=== PATIENT | female | born 1935 | race Two or more races ===

== ENCOUNTER 2022-08-23 21:01 | Inpatient (IN) | payer BC, OTHER ==
[~2022-08-23] VITALS: Ht 154.9 cm; Wt 68.0 kg
[2022-08-23] MEDS ORDERED: dilTIAZem 25 MG/5 ML VIAL IV ONE (21:45)
[2022-08-23 22:00] LABS: INR 0.96 (0.9-1.15); Partial Thromboplastin Time 20.2 sec (24.6-33.4)
[2022-08-23 22:02] LABS: Albumin 3.2 g/dL (3.4-5.0); Calcium 8.8 mg/dL (8.5-10.1); Magnesium 1.9 mg/dL (1.6-2.6); Potassium 4.9 mmol/L (3.5-5.1)
[2022-08-23 22:06] LABS: BUN/Creatinine Ratio 18.5; Bilirubin, Total 0.3 mg/dL (0.2-1.0); Total Protein 6.9 g/dL (6.4-8.2)
[2022-08-23 22:08] LABS: Hemoglobin 12.4 g/dL (12.2-16.2); Mean Corpuscular Hemoglobin 28.7 pg (28.0-32.0); Mean Corpuscular Hgb Conc. 32.6 g/dL (32.0-36.0); Mean Corpuscular Volume 87.9 fL (80.0-100.0); Red Blood Cells 4.32 10^6/uL (4.0-5.20); Red Cell Distribution Width 14.4 % (11.8-14.3); White Blood Cell 6.2 10^3/uL (4.4-10.8)
[2022-08-23 22:11] LABS: Band Neutrophils % (manual) 0; Basophils % (manual) 0 (0.0-2.0); Blast Cells 0; Metamyelocytes % 0; Myelocytes % 0; Promyelocytes % 0; Reactive Lymphocytes 0
[2022-08-23] MEDS ORDERED: ASPirin 325 MG TAB PO ONE (22:30)
[2022-08-23] MEDS ORDERED: ONDANSETRON HCL 4 MG/2 ML VIAL IV PRN (23:00)
[2022-08-23] MEDS ORDERED: MORPHINE SULFATE INJ 2 MG/ml SYRG IV PRN (23:00)
[2022-08-23] MEDS ORDERED: FUROSEMIDE 20 MG/2 ML VIAL IV ONE (23:00)
[2022-08-23] MEDS ORDERED: cloNIDine HCL 0.1 MG TAB PO PRN (23:00)
[2022-08-23] MEDS ORDERED: ACETAMINOPHEN 325 MG TAB PO PRN (23:00)
[2022-08-23] MEDS ORDERED: NITROGLYCERIN 0.4 MG SL TAB SL PRN (23:00)
[2022-08-23 23:02] LABS: Eosinophils % (manual) 1 (0-7); Lymphocytes % (manual) 24 (10.0-50.0); Monocytes % (manual) 9 (0-12)
[2022-08-24 03:52] LABS: Urine Bacteria FEW /hpf (None Seen); Urine Blood Negative /uL (Negative); Urine Hyaline Cast FEW /lpf (0 - 2); Urine Mucus FEW (None Seen); Urine Specific Gravity 1.013 (1.001-1.035); Urine WBC 33 /hpf (0 - 5)
[2022-08-24 04:48] LABS: Basophils # (auto) 0 10 ^3/uL (0-0.2); Eosinophils # (auto) 0.1 10 ^3/uL (0-0.8); Eosinophils % (auto) 1.7 % (0.0-7.0); Hematocrit 35.3 % (36.0-46.0); Hemoglobin 11.5 g/dL (12.2-16.2); Lymphocytes # (auto) 0.9 10 ^3/uL (0.4-5.4); Lymphocytes % (auto) 27.8 % (10.0-50.0); Mean Corpuscular Hemoglobin 28.6 pg (28.0-32.0); Mean Corpuscular Hgb Conc. 32.6 g/dL (32.0-36.0); Mean Corpuscular Volume 87.7 fL (80.0-100.0); Monocytes # (auto) 0.5 10 ^3/uL (0-1.3); Monocytes % (auto) 13.8 % (0.0-12.0); Neutrophils # (auto) 1.8 10 ^3/uL (1.6-8.6); Neutrophils % (auto) 55.7 % (37.0-80.0); Nucleated Red Blood Cells % 0.1 %; Red Blood Cells 4.02 10^6/uL (4.0-5.20); Red Cell Distribution Width 14.2 % (11.8-14.3); White Blood Cell 3.3 10^3/uL (4.4-10.8)
[2022-08-24 05:15] LABS: Potassium 4.8 mmol/L (3.5-5.1)
[2022-08-24 05:25] LABS: Albumin 3.1 g/dL (3.4-5.0); BUN/Creatinine Ratio 20.3; Bilirubin, Total 0.3 mg/dL (0.2-1.0); Total Protein 6.6 g/dL (6.4-8.2)
[2022-08-24] MEDS ORDERED: LOSARTAN POTASSIUM 50 MG TAB PO SCH (10:00)
[2022-08-24] MEDS ORDERED: FUROSEMIDE 40 MG TAB PO SCH (10:00)
[2022-08-24] MEDS ORDERED: ASPirin 81 mg TAB PO SCH (10:00)
[2022-08-24] MEDS: cefTRIAXone 1GM/50ML D5W 50 ML IV SCH (10:02)
[2022-08-24] MEDS: amLODIPine BESYLATE 5 MG TAB PO SCH (10:11)
[2022-08-24] MEDS: METOPROLOL TARTRATE 25 MG TAB PO SCH ×2 (10:13→23:28)
[2022-08-24] MEDS ORDERED: AMIODARONE HCL 200 MG TAB PO ONE (10:45)
[2022-08-24] MEDS ORDERED: ENOXAPARIN SOD 80 MG/0.8ML SYRINGE SC ONE (11:30)
[2022-08-24] MEDS: FUROSEMIDE 20 MG/2 ML VIAL IV SCH (18:28)
[2022-08-24] MEDS ORDERED: ATORVASTATIN 20 MG TAB PO SCH (22:00)
[2022-08-24 23:14] VITALS: BP 159/67
[2022-08-24] MEDS ORDERED: ATOR40TA52 PO (23:25)
[2022-08-24] MEDS ORDERED: AMLO-496 PO (23:25)
[2022-08-24] MEDS ORDERED: ATOR20TA50 PO (23:25)
[2022-08-24] MEDS ORDERED: MET25T PO (23:25)
[2022-08-24] MEDS ORDERED: SODI10PA PO (23:25)
[2022-08-24] MEDS: AMIODARONE HCL 200 MG TAB PO SCH (23:28)
[2022-08-25 05:00] VITALS: BP 139/61
[2022-08-25] MEDS: FUROSEMIDE 20 MG/2 ML VIAL IV SCH (05:35)
[2022-08-25 06:16] LABS: Basophils # (auto) 0 10 ^3/uL (0-0.2); Basophils % (auto) 0.6 % (0.0-2.0); Eosinophils # (auto) 0.1 10 ^3/uL (0-0.8); Eosinophils % (auto) 2.7 % (0.0-7.0); Hematocrit 38.6 % (36.0-46.0); Hemoglobin 12.8 g/dL (12.2-16.2); Mean Corpuscular Hemoglobin 29.2 pg (28.0-32.0); Mean Corpuscular Hgb Conc. 33.2 g/dL (32.0-36.0); Mean Corpuscular Volume 87.9 fL (80.0-100.0); Monocytes # (auto) 0.5 10 ^3/uL (0-1.3); Monocytes % (auto) 13.8 % (0.0-12.0); Neutrophils # (auto) 1.9 10 ^3/uL (1.6-8.6); Neutrophils % (auto) 53.9 % (37.0-80.0); Red Blood Cells 4.38 10^6/uL (4.0-5.20); Red Cell Distribution Width 14.2 % (11.8-14.3); White Blood Cell 3.5 10^3/uL (4.4-10.8)
[2022-08-25 06:28] LABS: Calcium 9.5 mg/dL (8.5-10.1); Potassium 4.9 mmol/L (3.5-5.1)
[2022-08-25 06:30] LABS: BUN/Creatinine Ratio 22.2
[2022-08-25 09:00] VITALS: BP 140/77
[2022-08-25] MEDS ORDERED: ASPirin 81 mg TAB PO SCH (10:00)
[2022-08-25] MEDS ORDERED: ENOXAPARIN SOD 80 MG/0.8ML SYRINGE SC SCH (10:00)
[2022-08-25] MEDS ORDERED: ISOSORBIDE MONONITRATE ER 60 MG TAB PO SCH (10:00)
[2022-08-25] MEDS: cefTRIAXone 1GM/50ML D5W 50 ML IV SCH (10:29)
[2022-08-25] MEDS: AMIODARONE HCL 200 MG TAB PO SCH (10:32)
[2022-08-25] MEDS: amLODIPine BESYLATE 5 MG TAB PO SCH (10:33)
[2022-08-25] MEDS ORDERED: AMIO200T33 PO (11:13)
[2022-08-25] MEDS ORDERED: APIX5TAB PO (11:13)
[2022-08-25] MEDS ORDERED: ISO60SRT PO (11:14)
[2022-08-25] MEDS ORDERED: FURO1TAB33 PO (11:14)
[2022-08-25] MEDS ORDERED: LEVO750T64 PO (11:15)
[2022-08-25 13:00] VITALS: BP 137/61
[2022-08-25 14:16] VITALS: BP 137/61
== END 2022-08-25 15:00 | disposition home or self-care (01) | DRG 281 ==
LOC: EDBD 21:01 → ER 21:03 → TELE 23:05 → TELE-WESTW 08-24 22:43
PROVIDERS: ADMIT Nurse Practitioner; ATTEND Internal Medicine Pulmonary Disease
DX: I21.4 Non-ST elevation (NSTEMI) myocardial infarction (principal); N17.9 Acute kidney failure, unspecified; N39.0 Urinary tract infection, site not specified; I48.0 Paroxysmal atrial fibrillation; I44.0 Atrioventricular block, first degree; R01.1 Cardiac murmur, unspecified; N18.9 Chronic kidney disease, unspecified; E11.22 Type 2 diabetes mellitus with diabetic chronic kidney disease; E78.5 Hyperlipidemia, unspecified; Z20.822 Contact with and (suspected) exposure to COVID-19; I12.9 Hypertensive chronic kidney disease with stage 1 through stage 4 chronic kidney disease, or unspecified chronic kidney disease
CPT/HCPCS: 36415; 71045; 80048; 80053; 81001; 83036; 83735; 83880; 84443; 84484; 85007; 85025; 85027; 85610; 85730; 93005; 93306; 96374; 96375; 99291; G0378; J0696